=== PATIENT | male | born 1945 | race Caucasian/White ===

== ENCOUNTER 2016-04-25 16:35 | Inpatient (IN) | payer OTHER, MEDICARE ==
[~2016-04-25] VITALS: Ht 182.9 cm; Wt 155.0 kg
[~2016-04-25 16:35] MED LIST: ADVAIR 500/501 DISK IH; ASPIRIN81 M2 PO; ATORVASTATIN CA10 MG PO; COUMADIN6 MG PO; FUROSEMIDE40 MG PO; GABAPENTIN300 MG PO; GLUCOTROL XL10 MG PO; LEVOTHYROXINE50 MCG PO; LOPRESSOR100 M1 PO; MAXZIDE 75/501 EACH PO; MELOXICAM15 MG PO; METAXALONE800 MG PO; METFORMIN HCL500 MG PO; METOPROLOL SUC100 MG PO; METRONIDAZOLE60 GM TP; MULTIVITAMIN W/IRON; OMEPRAZOLE20 MG PO; PANTOPRAZOLE SO40 MG PO; PRAMIPEXOLE0.125 MG PO; SPIRIVA1 INHALATI IH; THEOPHYLLINE400 MG PO; VENTOLIN HFA18 GM IH; VICTOZA0.6 MG/0.1 SC; WARFARIN SODIUM6 MG PO; ZOLOFT100 MG PO
[2016-04-25 16:53] LABS: HEMATOCRIT 25.7 % (38.0-50.0); MCH 26.5 PG (29.0-34.0); MCHC 28.8 G/DL (30.0-36.0); MCV 92.1 FL (86-99); MEAN PLAT.VOLUME 11.6 uM^3 (9.0-12.4); PLATELET COUNT 168 K/uL (156-360); RBC DIS.WIDTH-CV 18.7 % (11.8-14.6); RBC DIS.WIDTH-SD 60.7 % (39-53); RED BLOOD COUNT 2.79 M/uL (4.00-5.50); WHITE BLOOD COUNT 10.7 K/uL (4.1-10.2)
[2016-04-25 16:57] LABS: EOSINOPHIL (%) 0.4 % (0-5); IMMATURE GRANULOCYTE (%) 0.3 % (0.0-0.7); IMMATURE GRANULOCYTE COUNT 0.3 K/uL; LYMPHOCYTE COUNT 0.9 K/uL (1.0-2.8); MONOCYTE (%) 8.9 % (3-12); NEUTROPHIL COUNT 8.8 K/uL (1.8-6.4)
[2016-04-25 17:05] LABS: AMYLASE 38 IU/L (1-118); CHLORIDE 100 mEq/L (99-109); POTASSIUM 3.8 mEq/L (3.7-5.4); SODIUM 141 mEq/L (136-147)
[2016-04-25 17:07] LABS: GLUCOSE 151 mg/dL (70-99)
[2016-04-25 17:08] LABS: ANION GAP 13 MEQ/L (2-14)
[2016-04-25 17:11] LABS: GFR ESTIMATE (CALCULATED) 58 mL/min/
[2016-04-25 17:12] LABS: UREA NITROGEN (BUN) 22 mg/dL (9-23)
[2016-04-25 17:14] LABS: LIPASE 46 U/L (1.0-51.0)
[2016-04-25 17:28] LABS: SERUM ETHYL ALCOHOL < 10 mg/dL
[2016-04-25 17:31] LABS: BASE EXCESS 9.2 mEq/L (-3 to +3); CARBOXY HGB 2.4 % (0-5); METHEMOGLOBIN 1.1 % (0-1.5); pH 7.36 (7.35-7.45)
[2016-04-25 17:32] LABS: BICARBONATE 35.6 mEq/L (22-26); COMMENTS - BLOOD GASES A+C+; DEVICE NC; O2 FLOW 6 L/MIN; PCO2 63 mm Hg (35-45); PO2 74 mm Hg (80-100); SITE RR
[2016-04-25 17:36] LABS: TROP-I INTERPRETATION NEGATIVE; TROPONIN-I 0.05 ng/mL (0.0-0.30)
[2016-04-25] MEDS ORDERED: LO-DOSE ASPIRIN81 M2 PO (17:38)
[2016-04-25] MEDS ORDERED: CENTRAL VITE F1 EACH PO (17:38)
[2016-04-25] MEDS ORDERED: PROTONIX40 MG PO (17:39)
[2016-04-25] MEDS ORDERED: NIZORAL 2% CREA15 GM TP (17:41)
[2016-04-25] MEDS ORDERED: LEVOTHYROXINE75 MCG PO (17:42)
[2016-04-25] MEDS ORDERED: KETOCONAZOLE120 ML TP (17:42)
[2016-04-25 18:22] LABS: INTER. NORMALIZED RATIO 1.4; PROTHROMBIN TIME 14.1 (9.2-11.2); PTT 27.5 (25-32)
[2016-04-25] MEDS ORDERED: METOLAZONE5 MG PO (18:38)
[2016-04-25 22:40] VITALS: BP 130/56
[2016-04-25 22:50] VITALS: BP 112/55
[2016-04-25 23:30] VITALS: BP 116/53
[2016-04-25 23:48] LABS: POINT-OF-CARE METER ID UU13113731
[2016-04-26] VITALS (29 sets, daily range): BP systolic 93–133; BP diastolic 41–82
[2016-04-26 00:04] LABS: METH RESISTANT S AUREUS PCR NEGATIVE (NEGATIVE)
[2016-04-26 00:14] LABS: PROBE CHECK PASS; SPECIMEN PROCESSING CONTROL PASS
[2016-04-26 00:24] LABS: HEMATOCRIT 25.6 % (38.0-50.0); MCH 26.6 PG (29.0-34.0); MCHC 29.3 G/DL (30.0-36.0); MCV 90.8 FL (86-99); MEAN PLAT.VOLUME 11.1 uM^3 (9.0-12.4); PLATELET COUNT 154 K/uL (156-360); RBC DIS.WIDTH-CV 18.7 % (11.8-14.6); RBC DIS.WIDTH-SD 60.3 % (39-53); RED BLOOD COUNT 2.82 M/uL (4.00-5.50); WHITE BLOOD COUNT 8.5 K/uL (4.1-10.2)
[2016-04-26 00:32] LABS: EOSINOPHIL (%) 0.7 % (0-5); EOSINOPHIL COUNT 0.1 K/uL (0-0.3); IMMATURE GRANULOCYTE (%) 0.2 % (0.0-0.7); IMMATURE GRANULOCYTE COUNT 0.2 K/uL; MONOCYTE (%) 9.1 % (3-12); MONOCYTE COUNT 0.8 K/uL (0-0.8); NEUTROPHIL (%) 78.6 % (45-76); NEUTROPHIL COUNT 6.7 K/uL (1.8-6.4)
[2016-04-26 07:50] LABS: POINT-OF-CARE METER ID UU13113803
[2016-04-26 08:52] LABS: HEMATOCRIT 25.7 % (38.0-50.0); MCH 26.9 PG (29.0-34.0); MCV 89.9 FL (86-99); MEAN PLAT.VOLUME 11.4 uM^3 (9.0-12.4); PLATELET COUNT 131 K/uL (156-360); RBC DIS.WIDTH-CV 18.4 % (11.8-14.6); RBC DIS.WIDTH-SD 60.2 % (39-53); RED BLOOD COUNT 2.86 M/uL (4.00-5.50); WHITE BLOOD COUNT 7.9 K/uL (4.1-10.2)
[2016-04-26 09:14] LABS: ANION GAP 9 MEQ/L (2-14); CHLORIDE 100 MEQ/L (99-109); GFR ESTIMATE (CALCULATED) 53 mL/min/; GLUCOSE 154 mg/dL (70-99); POTASSIUM 3.4 MEQ/L (3.7-5.4); SAMPLE HEMOLYSIS CHECK 0; SAMPLE ICTERIC CHECK 0; SAMPLE LIPEMIA CHECK 0; SODIUM 142 MEQ/L (136-147); UREA NITROGEN (BUN) 24 mg/dL (9-23)
[2016-04-26 11:44] LABS: POINT-OF-CARE METER ID UU13113803
[2016-04-26 11:51] LABS: HEMATOCRIT 24.1 % (38.0-50.0); MCH 27.2 PG (29.0-34.0); MCHC 30.7 G/DL (30.0-36.0); MCV 88.6 FL (86-99); MEAN PLAT.VOLUME 12.1 uM^3 (9.0-12.4); PLATELET COUNT 152 K/uL (156-360); RBC DIS.WIDTH-CV 18.8 % (11.8-14.6); RBC DIS.WIDTH-SD 60.3 % (39-53); RED BLOOD COUNT 2.72 M/uL (4.00-5.50); WHITE BLOOD COUNT 8.5 K/uL (4.1-10.2)
[2016-04-26 13:20] LABS: MAGNESIUM 2.1 mg/dl (1.3-2.7)
[2016-04-26 17:33] LABS: POINT-OF-CARE METER ID UU13113748
[2016-04-26 19:17] LABS: HEMATOCRIT 28.4 % (38.0-50.0); MCH 27.1 PG (29.0-34.0); MCHC 30.3 G/DL (30.0-36.0); MCV 89.6 FL (86-99); MEAN PLAT.VOLUME 11.1 uM^3 (9.0-12.4); PLATELET COUNT 127 K/uL (156-360); RBC DIS.WIDTH-SD 58.8 % (39-53); RED BLOOD COUNT 3.17 M/uL (4.00-5.50); WHITE BLOOD COUNT 7.6 K/uL (4.1-10.2)
[2016-04-26 23:05] LABS: POINT-OF-CARE METER ID UU13113803
[2016-04-27] VITALS (17 sets, daily range): BP systolic 98–161; BP diastolic 54–128
[2016-04-27 00:41] LABS: HEMATOCRIT 27.9 % (38.0-50.0); MCH 27.3 PG (29.0-34.0); MCHC 30.5 G/DL (30.0-36.0); MCV 89.7 FL (86-99); MEAN PLAT.VOLUME 11.6 uM^3 (9.0-12.4); PLATELET COUNT 139 K/uL (156-360); RBC DIS.WIDTH-CV 18.2 % (11.8-14.6); RBC DIS.WIDTH-SD 56.9 % (39-53); RED BLOOD COUNT 3.11 M/uL (4.00-5.50); WHITE BLOOD COUNT 9.1 K/uL (4.1-10.2)
[2016-04-27 05:47] LABS: HEMATOCRIT 27.6 % (38.0-50.0); MCH 27.5 PG (29.0-34.0); MCHC 30.4 G/DL (30.0-36.0); MCV 90.5 FL (86-99); PLATELET COUNT 131 K/uL (156-360); RBC DIS.WIDTH-CV 18.4 % (11.8-14.6); RED BLOOD COUNT 3.05 M/uL (4.00-5.50); WHITE BLOOD COUNT 8.3 K/uL (4.1-10.2)
[2016-04-27 06:07] LABS: ALKALINE PHOSPHATASE 55 IU/L (3-129); ANION GAP 11 MEQ/L (2-14); CHLORIDE 99 MEQ/L (99-109); GFR ESTIMATE (CALCULATED) 58 mL/min/; POTASSIUM 3.3 MEQ/L (3.7-5.4); SAMPLE HEMOLYSIS CHECK 0; SAMPLE ICTERIC CHECK 0; SAMPLE LIPEMIA CHECK 0; SODIUM 145 MEQ/L (136-147); TOTAL BILIRUBIN 0.8 MG/DL (0.0-1.0); UREA NITROGEN (BUN) 25 mg/dL (9-23)
[2016-04-27 06:08] LABS: GLUCOSE 106 mg/dL (70-99)
[2016-04-27 12:03] LABS: MAGNESIUM 2.2 mg/dl (1.3-2.7)
[2016-04-27 12:26] LABS: HEMATOCRIT 26.2 % (38.0-50.0); MCH 27.7 PG (29.0-34.0); MCHC 30.5 G/DL (30.0-36.0); MCV 90.7 FL (86-99); MEAN PLAT.VOLUME 11.7 uM^3 (9.0-12.4); PLATELET COUNT 126 K/uL (156-360); RBC DIS.WIDTH-CV 18.5 % (11.8-14.6); RBC DIS.WIDTH-SD 60.6 % (39-53); RED BLOOD COUNT 2.89 M/uL (4.00-5.50); WHITE BLOOD COUNT 8.2 K/uL (4.1-10.2)
[2016-04-27 12:35] LABS: POINT-OF-CARE METER ID UU14174217
[2016-04-27 16:58] LABS: POINT-OF-CARE METER ID UU14174217
[2016-04-27 18:50] LABS: HEMATOCRIT 26.6 % (38.0-50.0); MCH 27.1 PG (29.0-34.0); MCHC 30.1 G/DL (30.0-36.0); MCV 90.2 FL (86-99); MEAN PLAT.VOLUME 11.7 uM^3 (9.0-12.4); PLATELET COUNT 132 K/uL (156-360); RBC DIS.WIDTH-CV 18.3 % (11.8-14.6); RED BLOOD COUNT 2.95 M/uL (4.00-5.50); WHITE BLOOD COUNT 8.1 K/uL (4.1-10.2)
[2016-04-27 21:47] LABS: POINT-OF-CARE METER ID UU13113803
[2016-04-28] VITALS (7 sets, daily range): BP systolic 136–163; BP diastolic 62–82
[2016-04-28 06:27] LABS: ANION GAP 7 MEQ/L (2-14); CHLORIDE 99 MEQ/L (99-109); GFR ESTIMATE (CALCULATED) > 59 mL/min/; GLUCOSE 109 mg/dL (70-99); POTASSIUM 3.1 MEQ/L (3.7-5.4); SAMPLE HEMOLYSIS CHECK 0; SAMPLE ICTERIC CHECK 0; SAMPLE LIPEMIA CHECK 0; SODIUM 142 MEQ/L (136-147); UREA NITROGEN (BUN) 22 mg/dL (9-23)
[2016-04-28 12:30] LABS: POINT-OF-CARE METER ID UU14162636
[2016-04-28 16:52] LABS: Estimated Average Glucose 111 mg/dL (70-123)
[2016-04-28 16:53] LABS: POINT-OF-CARE METER ID UU13113781; POINT-OF-CARE USER ID ENVKC36
[2016-04-29] VITALS (8 sets, daily range): BP systolic 124–148; BP diastolic 57–72
[2016-04-29 01:06] LABS: TROP-I INTERPRETATION NEGATIVE; TROPONIN-I 0.23 ng/mL (0.0-0.30)
[2016-04-29 07:55] LABS: POINT-OF-CARE METER ID UU13113698; POINT-OF-CARE USER ID ENVKC36
[2016-04-29 08:18] LABS: ANION GAP 7 MEQ/L (2-14); CHLORIDE 98 MEQ/L (99-109); GFR ESTIMATE (CALCULATED) > 59 mL/min/; GLUCOSE 100 mg/dL (70-99); POTASSIUM 3.2 MEQ/L (3.7-5.4); SAMPLE HEMOLYSIS CHECK 0; SAMPLE ICTERIC CHECK 0; SAMPLE LIPEMIA CHECK 0; SODIUM 142 MEQ/L (136-147); UREA NITROGEN (BUN) 19 mg/dL (9-23)
[2016-04-29 08:19] LABS: TROP-I INTERPRETATION NEGATIVE; TROPONIN-I 0.22 ng/mL (0.0-0.30)
[2016-04-29 11:06] LABS: HEMOGLOBIN A1c (GLYCOHEMOGLOB) 5.5 % HGB (Below 5.7)
[2016-04-29 12:00] LABS: POINT-OF-CARE METER ID UU13113781; POINT-OF-CARE USER ID ENVKC36
[2016-04-29 16:18] LABS: TROP-I INTERPRETATION NEGATIVE
[2016-04-29 16:40] LABS: POINT-OF-CARE METER ID UU13113781; POINT-OF-CARE USER ID ENVKC36
[2016-04-29 21:47] LABS: POINT-OF-CARE METER ID UU14174216
[2016-04-30 00:10] VITALS: BP 146/64
[2016-04-30 04:15] VITALS: BP 126/61
[2016-04-30 06:16] LABS: HEMATOCRIT 30.3 % (38.0-50.0); MCH 27.3 PG (29.0-34.0); MCHC 29.7 G/DL (30.0-36.0); MCV 91.8 FL (86-99); MEAN PLAT.VOLUME 11.1 uM^3 (9.0-12.4); PLATELET COUNT 154 K/uL (156-360); RBC DIS.WIDTH-CV 18.5 % (11.8-14.6); WHITE BLOOD COUNT 8.8 K/uL (4.1-10.2)
[2016-04-30 06:44] LABS: ANION GAP 9 MEQ/L (2-14); CHLORIDE 94 MEQ/L (99-109); GFR ESTIMATE (CALCULATED) > 59 mL/min/; GLUCOSE 95 mg/dL (70-99); POTASSIUM 3.2 MEQ/L (3.7-5.4); SAMPLE HEMOLYSIS CHECK 1; SAMPLE ICTERIC CHECK 0; SAMPLE LIPEMIA CHECK 0; SODIUM 141 MEQ/L (136-147); UREA NITROGEN (BUN) 17 mg/dL (9-23)
[2016-04-30 06:52] LABS: ALKALINE PHOSPHATASE 49 IU/L (3-129); ANION GAP ND MEQ/L (2-14); CHLORIDE 94 MEQ/L (99-109); GFR ESTIMATE (CALCULATED) > 59 mL/min/; GLUCOSE 98 mg/dL (70-99); POTASSIUM 2.9 MEQ/L (3.7-5.4); SAMPLE HEMOLYSIS CHECK 0; SAMPLE ICTERIC CHECK 0; SAMPLE LIPEMIA CHECK 0; SODIUM 143 MEQ/L (136-147); UREA NITROGEN (BUN) 18 mg/dL (9-23)
[2016-04-30 07:03] LABS: CARBON DIOXIDE (BICARBONATE) > 40.0 MEQ/L (20-31); TOTAL BILIRUBIN 1.3 MG/DL (0.0-1.0)
[2016-04-30 08:27] VITALS: BP 133/67
[2016-04-30 11:26] LABS: POINT-OF-CARE METER ID UU13113781
[2016-04-30 11:54] VITALS: BP 130/68
[2016-04-30 15:39] VITALS: BP 101/68
[2016-04-30 16:33] LABS: POINT-OF-CARE METER ID UU14174216
[2016-04-30 19:22] VITALS: BP 117/56
[2016-04-30 21:02] LABS: POINT-OF-CARE METER ID UU13113781
[2016-05-01] VITALS: BP 130/79
[2016-05-01 04:00] VITALS: BP 135/75
[2016-05-01 06:02] LABS: HEMATOCRIT 29.3 % (38.0-50.0); MCH 26.6 PG (29.0-34.0); MCV 91.6 FL (86-99); MEAN PLAT.VOLUME 10.7 uM^3 (9.0-12.4); PLATELET COUNT 139 K/uL (156-360); RBC DIS.WIDTH-CV 17.9 % (11.8-14.6); WHITE BLOOD COUNT 7.8 K/uL (4.1-10.2)
[2016-05-01 06:44] LABS: ALKALINE PHOSPHATASE 47 IU/L (3-129); ANION GAP ND MEQ/L (2-14); CHLORIDE 90 MEQ/L (99-109); GFR ESTIMATE (CALCULATED) > 59 mL/min/; GLUCOSE 95 mg/dL (70-99); POTASSIUM 2.5 MEQ/L (3.7-5.4); SAMPLE HEMOLYSIS CHECK 0; SAMPLE ICTERIC CHECK 0; SAMPLE LIPEMIA CHECK 0; SODIUM 143 MEQ/L (136-147); TOTAL BILIRUBIN 1.2 MG/DL (0.0-1.0); UREA NITROGEN (BUN) 16 mg/dL (9-23)
[2016-05-01 06:45] LABS: CARBON DIOXIDE (BICARBONATE) > 40.0 MEQ/L (20-31)
[2016-05-01 07:13] VITALS: BP 117/69
[2016-05-01 08:01] LABS: POINT-OF-CARE METER ID UU14174216
[2016-05-01 11:41] VITALS: BP 93/56
[2016-05-01 15:58] VITALS: BP 97/57
[2016-05-01 20:00] VITALS: BP 131/64
[2016-05-01 21:17] LABS: POINT-OF-CARE METER ID UU13113698
[2016-05-02] VITALS: BP 145/71
[2016-05-02 04:00] VITALS: BP 124/60
[2016-05-02 05:41] LABS: HEMATOCRIT 30.1 % (38.0-50.0); MCH 27.1 PG (29.0-34.0); MCHC 29.6 G/DL (30.0-36.0); MCV 91.8 FL (86-99); MEAN PLAT.VOLUME 11.6 uM^3 (9.0-12.4); PLATELET COUNT 159 K/uL (156-360); RBC DIS.WIDTH-CV 17.9 % (11.8-14.6); RBC DIS.WIDTH-SD 58.8 % (39-53); RED BLOOD COUNT 3.28 M/uL (4.00-5.50); WHITE BLOOD COUNT 7.8 K/uL (4.1-10.2)
[2016-05-02 06:12] LABS: ALKALINE PHOSPHATASE 52 IU/L (3-129); ANION GAP ND MEQ/L (2-14); CHLORIDE 87 MEQ/L (99-109); GFR ESTIMATE (CALCULATED) > 59 mL/min/; GLUCOSE 109 mg/dL (70-99); POTASSIUM 2.7 MEQ/L (3.7-5.4); SAMPLE HEMOLYSIS CHECK 0; SAMPLE ICTERIC CHECK 0; SAMPLE LIPEMIA CHECK 0; SODIUM 140 MEQ/L (136-147); TOTAL BILIRUBIN 1.2 MG/DL (0.0-1.0); UREA NITROGEN (BUN) 16 mg/dL (9-23)
[2016-05-02 06:21] LABS: CARBON DIOXIDE (BICARBONATE) > 40.0 MEQ/L (20-31)
[2016-05-02 09:00] VITALS: BP 118/64
[2016-05-02 11:45] LABS: POINT-OF-CARE METER ID UU13113698
[2016-05-02 12:00] VITALS: BP 128/62
[2016-05-02 15:49] LABS: POINT-OF-CARE METER ID UU13113698
[2016-05-03 00:16] VITALS: BP 149/71
[2016-05-03 04:00] VITALS: BP 128/60
[2016-05-03 06:40] LABS: HEMATOCRIT 30.3 % (38.0-50.0); MCH 27.1 PG (29.0-34.0); MCHC 29.4 G/DL (30.0-36.0); MCV 92.1 FL (86-99); MEAN PLAT.VOLUME 10.5 uM^3 (9.0-12.4); PLATELET COUNT 150 K/uL (156-360); RBC DIS.WIDTH-CV 18.1 % (11.8-14.6); RBC DIS.WIDTH-SD 60.5 % (39-53); RED BLOOD COUNT 3.29 M/uL (4.00-5.50); WHITE BLOOD COUNT 6.9 K/uL (4.1-10.2)
[2016-05-03 07:04] LABS: ALKALINE PHOSPHATASE 52 IU/L (3-129); ANION GAP ND MEQ/L (2-14); CARBON DIOXIDE (BICARBONATE) > 40.0 MEQ/L (20-31); CHLORIDE 88 MEQ/L (99-109); GFR ESTIMATE (CALCULATED) > 59 mL/min/; GLUCOSE 114 mg/dL (70-99); POTASSIUM 2.7 MEQ/L (3.7-5.4); SAMPLE HEMOLYSIS CHECK 0; SAMPLE ICTERIC CHECK 0; SAMPLE LIPEMIA CHECK 0; SODIUM 142 MEQ/L (136-147); TOTAL BILIRUBIN 1.1 MG/DL (0.0-1.0); UREA NITROGEN (BUN) 16 mg/dL (9-23)
[2016-05-03 07:57] VITALS: BP 102/57
[2016-05-03 08:24] LABS: POINT-OF-CARE METER ID UU13113698
[2016-05-03 11:17] LABS: POINT-OF-CARE METER ID UU13113698
[2016-05-03 11:35] VITALS: BP 93/62
[2016-05-03 15:06] VITALS: BP 97/57
[2016-05-03 19:58] VITALS: BP 101/58
[2016-05-04] VITALS (8 sets, daily range): BP systolic 90–140; BP diastolic 52–70
[2016-05-04 06:53] LABS: MCH 27.3 PG (29.0-34.0); MCHC 28.8 G/DL (30.0-36.0); MEAN PLAT.VOLUME 11.1 uM^3 (9.0-12.4); PLATELET COUNT 164 K/uL (156-360); RBC DIS.WIDTH-SD 58.5 % (39-53); RED BLOOD COUNT 3.37 M/uL (4.00-5.50); WHITE BLOOD COUNT 7.2 K/uL (4.1-10.2)
[2016-05-04 07:55] LABS: ALKALINE PHOSPHATASE 53 IU/L (3-129); ANION GAP ND MEQ/L (2-14); CARBON DIOXIDE (BICARBONATE) > 40.0 MEQ/L (20-31); CHLORIDE 91 MEQ/L (99-109); GFR ESTIMATE (CALCULATED) > 59 mL/min/; GLUCOSE 110 mg/dL (70-99); POTASSIUM 3.1 MEQ/L (3.7-5.4); SAMPLE HEMOLYSIS CHECK 0; SAMPLE ICTERIC CHECK 0; SAMPLE LIPEMIA CHECK 0; SODIUM 143 MEQ/L (136-147); TOTAL BILIRUBIN 0.9 MG/DL (0.0-1.0); UREA NITROGEN (BUN) 15 mg/dL (9-23)
[2016-05-04 22:05] LABS: POINT-OF-CARE METER ID UU13113698
[2016-05-05 04:09] VITALS: BP 119/63
[2016-05-05 06:51] LABS: HEMATOCRIT 30.4 % (38.0-50.0); MCH 27.9 PG (29.0-34.0); MCHC 29.9 G/DL (30.0-36.0); MCV 93.3 FL (86-99); MEAN PLAT.VOLUME 11.2 uM^3 (9.0-12.4); PLATELET COUNT 162 K/uL (156-360); RBC DIS.WIDTH-CV 18.2 % (11.8-14.6); RED BLOOD COUNT 3.26 M/uL (4.00-5.50); WHITE BLOOD COUNT 7.9 K/uL (4.1-10.2)
[2016-05-05 07:29] LABS: ALKALINE PHOSPHATASE 56 IU/L (3-129); ANION GAP ND MEQ/L (2-14); CHLORIDE 92 MEQ/L (99-109); GFR ESTIMATE (CALCULATED) > 59 mL/min/; GLUCOSE 113 mg/dL (70-99); POTASSIUM 3.5 MEQ/L (3.7-5.4); SAMPLE HEMOLYSIS CHECK 0; SAMPLE ICTERIC CHECK 0; SAMPLE LIPEMIA CHECK 0; SODIUM 141 MEQ/L (136-147); TOTAL BILIRUBIN 0.8 MG/DL (0.0-1.0); UREA NITROGEN (BUN) 14 mg/dL (9-23)
[2016-05-05 07:31] LABS: CARBON DIOXIDE (BICARBONATE) > 40.0 MEQ/L (20-31)
[2016-05-05 08:00] VITALS: BP 148/77
[2016-05-05 08:09] LABS: POINT-OF-CARE METER ID UU13113698
[2016-05-05 11:33] VITALS: BP 118/73
[2016-05-05 15:14] VITALS: BP 104/66
[2016-05-05 16:11] LABS: POINT-OF-CARE METER ID UU13113698
[2016-05-05 21:23] VITALS: BP 130/69
[2016-05-06 00:33] VITALS: BP 94/64
[2016-05-06 05:45] VITALS: BP 115/64
[2016-05-06 06:36] LABS: HEMATOCRIT 30.3 % (38.0-50.0); MCH 27.8 PG (29.0-34.0); MCV 92.7 FL (86-99); MEAN PLAT.VOLUME 11.8 uM^3 (9.0-12.4); PLATELET COUNT 190 K/uL (156-360); RBC DIS.WIDTH-CV 18.1 % (11.8-14.6); RBC DIS.WIDTH-SD 60.6 % (39-53); RED BLOOD COUNT 3.27 M/uL (4.00-5.50); WHITE BLOOD COUNT 8.3 K/uL (4.1-10.2)
[2016-05-06 07:13] LABS: ALKALINE PHOSPHATASE 72 IU/L (3-129); ANION GAP 12 MEQ/L (2-14); CHLORIDE 93 MEQ/L (99-109); GFR ESTIMATE (CALCULATED) > 59 mL/min/; SAMPLE HEMOLYSIS CHECK 0; SAMPLE ICTERIC CHECK 0; SAMPLE LIPEMIA CHECK 3; SODIUM 139 MEQ/L (136-147); TOTAL BILIRUBIN 0.8 MG/DL (0.0-1.0); UREA NITROGEN (BUN) 15 mg/dL (9-23)
[2016-05-06 07:14] LABS: GLUCOSE 250 mg/dL (70-99)
[2016-05-06 07:43] LABS: POINT-OF-CARE METER ID UU13113698
[2016-05-06 08:21] VITALS: BP 123/71
[2016-05-06 12:08] VITALS: BP 123/71
[2016-05-06 16:04] LABS: POINT-OF-CARE METER ID UU13113698
[2016-05-06 17:43] VITALS: BP 109/52
[2016-05-06 20:11] VITALS: BP 114/59
[2016-05-06 21:13] LABS: POINT-OF-CARE METER ID UU13113781
[2016-05-07 00:15] VITALS: BP 139/82
[2016-05-07 06:45] VITALS: BP 127/74
[2016-05-07 08:49] VITALS: BP 111/57
[2016-05-07 11:25] LABS: POINT-OF-CARE METER ID UU13113781
[2016-05-07 12:16] VITALS: BP 135/83
[2016-05-07 16:34] LABS: POINT-OF-CARE METER ID UU13113698
[2016-05-07 17:25] VITALS: BP 117/59
[2016-05-07 19:55] VITALS: BP 115/55
[2016-05-07 21:01] LABS: POINT-OF-CARE METER ID UU13113698
[2016-05-08 01:13] VITALS: BP 136/72
[2016-05-08 06:11] VITALS: BP 108/56
[2016-05-08] MEDS ORDERED: DUONEB 2.5-0.5 M3 ML AEROSOL (06:22)
[2016-05-08] MEDS ORDERED: LOPRESSOR50 MG PO (06:23)
[2016-05-08] MEDS ORDERED: LOSARTAN POTASS50 MG PO (06:23)
[2016-05-08] MEDS ORDERED: PREDNISONE20 MG PO (06:24)
[2016-05-08] MEDS ORDERED: K-DUR20 MEQ PO (06:24)
[2016-05-08] MEDS ORDERED: NOVOLOG PE100 UNITS/ SC (06:25)
[2016-05-08] MEDS ORDERED: LIDOCAINE700 MG TD (06:25)
[2016-05-08 07:43] LABS: POINT-OF-CARE METER ID UU13113698
[2016-05-08 08:50] VITALS: BP 134/86
[2016-05-08 11:39] LABS: POINT-OF-CARE METER ID UU13113698
[2016-05-08 13:10] VITALS: BP 134/70
== END 2016-05-08 13:27 | DRG 963 ==
LOC: TRA 16:35 → EDOF 20:36 → 4EAST 20:36 → 4WEST 20:36 → 4EAST 04-28 16:27
PROVIDERS: Emergency Medicine; Internal Medicine; Internal Medicine Critical Care Medicine
PROC: 30233N1 Transfusion of Nonautologous Red Blood Cells into Peripheral Vein, Percutaneous Approach (ICD-10-PCS; principal; 2016-04-25)
PROC: 5A09457 Assistance with Respiratory Ventilation, 24-96 Consecutive Hours, Continuous Positive Airway Pressure (ICD-10-PCS; 2016-05-03)
DX: S27.322A Contusion of lung, bilateral, initial encounter (principal); J96.21 Acute and chronic respiratory failure with hypoxia; S36.899A Unspecified injury of other intra-abdominal organs, initial encounter; J18.9 Pneumonia, unspecified organism; J96.22 Acute and chronic respiratory failure with hypercapnia; J44.1 Chronic obstructive pulmonary disease with (acute) exacerbation; Z68.43 Body mass index [BMI] 50.0-59.9, adult; S27.893A Laceration of other specified intrathoracic organs, initial encounter; S27.69XA Other injury of pleura, initial encounter; E87.2 Acidosis; S52.612A Displaced fracture of left ulna styloid process, initial encounter for closed fracture; S52.502A Unspecified fracture of the lower end of left radius, initial encounter for closed fracture; S26.91XA Contusion of heart, unspecified with or without hemopericardium, initial encounter; D62 Acute posthemorrhagic anemia; E66.2 Morbid (severe) obesity with alveolar hypoventilation; J98.11 Atelectasis; J90 Pleural effusion, not elsewhere classified; Q24.0 Dextrocardia; V48.5XXA Car driver injured in noncollision transport accident in traffic accident, initial encounter; I95.9 Hypotension, unspecified; S62.001A Unspecified fracture of navicular [scaphoid] bone of right wrist, initial encounter for closed fracture; I48.2 Chronic atrial fibrillation; I50.9 Heart failure, unspecified; E03.9 Hypothyroidism, unspecified; E11.65 Type 2 diabetes mellitus with hyperglycemia; S30.0XXA Contusion of lower back and pelvis, initial encounter; S20.211A Contusion of right front wall of thorax, initial encounter; S20.212A Contusion of left front wall of thorax, initial encounter; S62.316A Displaced fracture of base of fifth metacarpal bone, right hand, initial encounter for closed fracture; S62.312A Displaced fracture of base of third metacarpal bone, right hand, initial encounter for closed fracture; E87.6 Hypokalemia; I27.2 Other secondary pulmonary hypertension; E78.5 Hyperlipidemia, unspecified; I10 Essential (primary) hypertension; E78.00 Pure hypercholesterolemia, unspecified; Z99.81 Dependence on supplemental oxygen; Z88.2 Allergy status to sulfonamides; Y92.410 Unspecified street and highway as the place of occurrence of the external cause; Z79.01 Long term (current) use of anticoagulants; Z79.84 Long term (current) use of oral hypoglycemic drugs; Z87.891 Personal history of nicotine dependence
CPT/HCPCS: 36600; 70450; 71010; 71020; 71260; 73100; 73110; 73130; 73200; 73610; 74177; 80048; 80053; 81003; 82150; 82310; 82803; 82948; 83036; 83690; 83735; 83880; 84100; 84484; 85014; 85018; 85025; 85027; 85610; 85730; 86850; 86900; 86901; 86920; 87641; 93005; 93306; 94010; 94640; 94640 76; 94644; 94645; 94660; 94667; 94668; 94760; 94799; 97530 GO; 97530 GP; 99202; 99281; 99285; G0480; J0295; J0690; J1815; J1940; J2930; J7030; J7050; J7120; J7512; P9016